=== PATIENT | male | born 1995 | race Caucasian/White ===

== ENCOUNTER 2019-03-12 17:26 | Emergency (ER) | payer OTHER ==
--- NOTE | 2019-03-12 17:41 | Emergency Department Record ---
History of Present Illness - General Chief Complaint: Chest Pain Stated Complaint: CHEST CONGESTION/PRESSURE Time Seen by Provider: 03/12/19 17:38 Source: Patient Mode of Arrival: Ambulatory Limitations: No limitations - History of Present Illness Initial Comments: The patient is here due to vague L upper chest pressure for about 10 days. The pain is a mild ache and nonradiating. It is not associated with any SOB, RADHA, sweating, nausea or lightheadedness. The pain is also NOT worse with exertion or activity. He did go to the 4 days ago for the same issue and had an EKG done and was discharged on Metoprolol which he was supposed to be already taking. The discomfort has not changed so he became concerned and wanted to be checked out again for it. The patient has no cardiac risk factors except for mild HTN. MD Complaint: Other Onset/Timin -: Days(s) Pain Location: Substernal Severity: Mild Severity scale (1-10): 3 Quality: Aching - Related Data Previous Rx's Medication Instructions Recorded Cephalexin [Keflex] 500 mg PO QID #28 cap 03/12/19 Allergies Allergy/AdvReac Type Severity Reaction Status Date / Time No Known Allergies Allergy HYPERSENSIT Verified 03/12/19 17:37 [facility] Travel Screening - Travel/Exposure Within Last 30 Days Have you traveled within the last 30 days?: No - Travel/Exposure Within Last Year Have you traveled outside the [place] in the last year?: No - Additonal Travel Details Have you been exposed to anyone with a communicable illness?: No - Travel Symptoms Symptom Screening: None Review of Systems Constitutional: Denies: Chills, Fever Eyes: Denies: Eye discharge ENT: Denies: Congestion Respiratory: Denies: Cough, Dyspnea Cardiovascular: Reports: Chest pain. Denies: Arrhythmia Endocrine: Denies: Fatigue Gastrointestinal: Denies: Nausea Genitourinary: Denies: Dysuria Musculoskeletal: Denies: Arthralgia Past Medical History - SOCIAL HISTORY Smoking Status: Former smoker Alcohol Use: Occasional Drug Use: Occasional Drug Use Detail:: Marijuana - RESPIRATORY Hx Respiratory Disorders: No - CARDIOVASCULAR Hx Cardio Disorders: No - NEURO Hx Neuro Disorders: No - GI Hx GI Disorders: No - Hx Genitourinary Disorders: No - ENDOCRINE Hx Endocrine Disorders: No - MUSCULOSKELETAL Hx Musculoskeletal Disorders: No - PSYCH Hx Psych Problems: No - HEMATOLOGY/ONCOLOGY Hx Hematology/Oncology Disorders: No Family Medical History Any Significant Family History?: Yes Physical Exam - General General Appearance: Alert, Oriented x3, Cooperative, No acute distress - Head Head exam: Atraumatic, Normocephalic, Normal inspection - Eye Eye exam: Normal appearance, PERRL - ENT Throat exam: Normal inspection. negative: Tonsillar erythema, Tonsillar exudate - Neck Neck exam: Normal inspection, Full ROM. negative: Tenderness - Respiratory Respiratory exam: Normal lung sounds bilaterally, Chest wall tenderness (THe L upper CP is 100% reproducible to palpation.). negative: Respiratory distress - Cardiovascular Cardiovascular Exam: Regular rate, Normal rhythm, Normal heart sounds - GI/Abdominal GI/Abdominal exam: Soft, Normal bowel sounds. negative: Tenderness - Extremities Extremities exam: Full ROM (The R hand and fingers have normal ROM.), Normal capillary refill. negative: Normal inspection (There are abrasions to the distal R 4th and 5th fingers at the nails from trauma today at work.), Tenderness Image of Full Body: 1 - Area of pain and 100% reproducible tenderness. - Neurological Neurological exam: Alert. negative: Motor sensory deficit Course Vital Signs 03/12/19 17:28 Temperature 98.4 F Pulse Rate 84 Respiratory 18 Rate Blood Pressure 154/94 Pulse Ox 97 - Reevaluation(s) Reevaluation #1: The patient is doing very well at this time. He denies any worsening pain or any discomfort at this time. I did discuss the fact that his workup is all very normal and clearly does not indicate any serious cardiac issues. The patient is young and healthy with no significant cardiac risk factors. His HEART SCORE calculation is 0 or 1 depending how your calculate it so I clearly feel the patient is stable for discharge. He also has had R 4th and 5th finger trauma today at work but is refusing an xray. The distal finger tips have significant abrasions present so we will clean then up and get the patient on Keflex. The patient's Td is UTD. 03/12/19 18:32 Medical Decision Making - Data Complexity MDM Data: Labs Ordered and/or Reviewed, X-Ray Ordered and/or Reviewed, EKG Ordered and/or Reviewed - Lab Data Result diagrams: 03/12/19 17:50 03/12/19 17:50 - EKG Data -: EKG Interpreted by Me EKG: No Acute Changes, Normal EKG - Radiology Data Radiology results: Report reviewed (CXR: Neg.) Disposition Disposition: Discharge Clinical Impression: Chest pain, atypical Disposition: Home, Self-Care Condition: (2) Stable Instructions: Chest Pain (ED) Additional Instructions: Please take Tylenol or Advil for pain and take the Keflex for your fingers. Please see a family doctor for follow up and possible further testing. Return to the ER for any worsening issues. Prescriptions: Cephalexin [Keflex] 500 mg PO QID #28 cap Forms: Patient Portal Access Time of Disposition: 18:36 Quality - Quality Measures Quality Measures: N/A - Blood Pressure Screening View Details: Yes Does Patient Have Any of the Following: Active Dx of HTN Blood Pressure Classification: Hypertensive Reading Systolic Measurement: 154 Diastolic Measurement: 94 Screening for High Blood Pressure: Patient Exclusion, Hx of HTN [G9744]
[2019-03-12] MEDS ORDERED: IBUPROFEN 600 MG TABLET PO ONE (17:47)
[2019-03-12 17:57] LABS: ABSOLUTE NEUTROPHIL COUNT 8.33; BASO % 0.1 % (0-6); EOS % 0.7 % (0-6); GRAN % 74.7 % (47-80); HEMATOCRIT 44.1 % (42.0-52.0); HEMOGLOBIN 15.3 gm/dl (14.0-18.0); MEAN CORPUSCULAR HEMOGLOBIN 29.8 pg (27-33); MEAN CORPUSCULAR HGB CONC 34.7 g/dl (32-36); MEAN PLATELET VOLUME 8.5 fl (7.4-10.4); MONO % 6.5 % (0-9); PLATELET COUNT 294 K/uL (130-400); RED BLOOD COUNT 5.13 M/uL (4.40-5.70); RED CELL DISTRIBUTION WIDTH 12.8 % (11.5-14.5); WHITE BLOOD COUNT W/O DIFF 11.1 K/uL (4.2-12.2)
[2019-03-12 18:05] LABS: BLOOD UREA NITROGEN 9 mg/dL (6-20); CREATININE 0.6 mg/dL (0.7-1.2); EST GLOMERULAR FILTRATION RATE > 60 mL/min
[2019-03-12 18:06] LABS: TOTAL PROTEIN 7.6 g/dL (6.6-8.7)
[2019-03-12 18:08] LABS: GLUCOSE,RANDOM 95 mg/dL (74-109)
[2019-03-12 18:11] LABS: ALB/GLOB RATIO 1.8 (1.1-1.8); ALBUMIN 4.9 g/dL (4.0-5.0); ALKALINE PHOSPHATASE 90 U/L (40-129); ALT/SGPT 17 U/L (<41); AST/SGOT 17 U/L (10.0-50.0)
--- NOTE | 2019-03-12 18:25 | RADIOLOGY REPORT ---
EXAMINATION: Two View Chest Radiographs EXAM DATE: 03/12/2019 6:21 PM TECHNIQUE: Frontal and lateral views INDICATION: CP COMPARISON: None ENCOUNTER: Not applicable FINDINGS: The heart, mediastinum, and pulmonary vasculature are normal. No lung consolidation or pleural effu sions are present. IMPRESSION: No acute pulmonary disease process Dictated by: Ethel Jordan DO on 03/12/2019 6:23 PM. .
== END 2019-03-12 18:45 | disposition home or self-care (01) ==
LOC: ER 17:26
DX: R07.89 Other chest pain (principal); S60.414A Abrasion of right ring finger, initial encounter; S60.416A Abrasion of right little finger, initial encounter; W11.XXXA Fall on and from ladder, initial encounter; I10 Essential (primary) hypertension; Z87.891 Personal history of nicotine dependence
CPT/HCPCS: 71046; 80053; 84484; 85025; 93005; 93010; 99284

== ENCOUNTER 2019-03-17 13:05 | Emergency (ER) | payer OTHER ==
[2019-03-17] MEDS ORDERED: ACETAMINOPHEN 500 MG TABLET PO ONE (14:04)
--- NOTE | 2019-03-17 14:09 | Emergency Department Record ---
History of Present Illness - General Chief complaint: Head Injury Stated complaint: VISION IS OFF, HERE FOR HEAD TRAUMA TUESDAY Time Seen by Provider: 03/17/19 13:31 Source: Patient Mode of Arrival: Ambulatory Limitations: No limitations - History of Present Illness Initial comments: pt fell 10 ft off a ladder 5days ago. he has amnesia re the event. since then he has had a flynn and problems w his vision. he also has pain in his back MD Complaint: Head injury, Fall Onset/Timin -: Days(s) Location: Other Place: Home Radiation: Neck Severity: Moderate Severity scale (1-10): 2 Quality: Aching Consistency: Constant Associated Symptoms: Vision changes - Related Data Previous Rx's Medication Instructions Recorded Cephalexin [Keflex] 500 mg PO QID #28 cap 03/12/19 Allergies/Adverse reactions: Allergies Allergy/AdvReac Type Severity Reaction Status Date / Time No Known Allergies Allergy HYPERSENSIT Verified 03/17/19 13:16 IV[facility] Travel Screening - Travel/Exposure Within Last 30 Days Have you traveled within the last 30 days?: No - Travel/Exposure Within Last Year Have you traveled outside the [place] in the last year?: No - Additonal Travel Details Have you been exposed to anyone with a communicable illness?: No - Travel Symptoms Symptom Screening: None Review of Systems Reviewed: No additional complaints except as noted below Constitutional: Reports: As per HPI. Denies: Chills, Fever, Malaise, Night sweats, Weakness, Weight change Eyes: Reports: As per HPI, Vision change. Denies: Eye discharge, Eye pain, Photophobia ENT: Reports: As per HPI. Denies: Congestion, Dental pain, Ear pain, Epistaxis, Hearing loss, Throat pain Respiratory: Reports: As per HPI. Denies: Cough, Dyspnea, Hemoptysis, Stridor, Wheezes Cardiovascular: Reports: As per HPI. Denies: Arrhythmia, Chest pain, Dyspnea on exertion, Edema, Murmurs, Orthopnea, Palpitations, Paroxysmal nocturnal dyspnea, Rheumatic Fever, Syncope Endocrine: Reports: As per HPI. Denies: Fatigue, Heat or cold intolerance, Polydipsia, Polyuria Gastrointestinal: Reports: As per HPI. Denies: Abdominal pain, Constipation, Diarrhea, Hematemesis, Hematochezia, Melena, Nausea, Vomiting Genitourinary: Reports: As per HPI. Denies: Dysuria, Frequency, Hematuria, Incontinence, Retention, Testicular pain, Testicular mass, Urgency Musculoskeletal: Reports: As per HPI. Denies: Arthralgia, Back pain, Gout, Joint swelling, Myalgia, Neck pain Skin: Reports: As per HPI. Denies: Bruising, Change in color, Change in hair/nails, Lesions, Pruritus, Rash Neurological: Reports: As per HPI. Denies: Abnormal gait, Confusion, Headache, Numbness, Paresthesias, Seizure, Tingling, Tremors, Vertigo, Weakness Psychiatric: Reports: As per HPI. Denies: Anxiety, Auditory hallucinations, Depression, Homicidal thoughts, Suicidal thoughts, Visual hallucinations Hematological/Lymphatic: Reports: As per HPI. Denies: Anemia, Blood Clots, Easy bleeding, Easy bruising, Swollen glands Past Medical History - SOCIAL HISTORY Smoking Status: Former smoker Alcohol Use: Occasional Drug Use: None - RESPIRATORY Hx Respiratory Disorders: No - CARDIOVASCULAR Hx Cardio Disorders: No - NEURO Hx Neuro Disorders: No - GI Hx GI Disorders: No - Hx Genitourinary Disorders: No - ENDOCRINE Hx Endocrine Disorders: No - MUSCULOSKELETAL Hx Musculoskeletal Disorders: No - PSYCH Hx Psych Problems: No - HEMATOLOGY/ONCOLOGY Hx Hematology/Oncology Disorders: No Family Medical History Any Significant Family History?: Yes Physical Exam - General General Appearance: Alert, Oriented x3, Cooperative, Mild distress - Head Head exam: Normal inspection Head exam detail: General tenderness - Eye Eye exam: Normal appearance, PERRL, EOMI Pupils: Normal accommodation With correction: No - ENT ENT exam: Normal exam, Mucous membranes moist, Normal external ear exam, Normal orophraynx Ear exam: Normal external inspection. negative: External canal tenderness Nasal Exam: Normal inspection. negative: Discharge, Sinus tenderness Mouth exam: Normal external inspection, Tongue normal Teeth exam: Normal inspection. negative: Dental caries Throat exam: Normal inspection. negative: Tonsillar erythema, Tonsillar exudate - Neck Neck exam: Normal inspection, Full ROM. negative: Tenderness - Respiratory Respiratory exam: Normal lung sounds bilaterally. negative: Respiratory distress - Cardiovascular Cardiovascular Exam: Regular rate, Normal rhythm, Normal heart sounds - GI/Abdominal GI/Abdominal exam: Soft, Normal bowel sounds. negative: Tenderness - Rectal Rectal exam: Deferred - exam: Deferred - Extremities Extremities exam: Normal inspection, Full ROM, Normal capillary refill. negative: Tenderness - Back Back exam: Reports: Full ROM, Tenderness. Denies: Muscle spasm, Rash noted - Neurological Neurological exam: Alert, Normal gait, Oriented X3, Reflexes normal - Psychiatric Psychiatric exam: Normal affect, Normal mood - Skin Skin exam: Dry, Intact, Normal color, Warm Course Vital Signs 03/17/19 13:17 Temperature 97.7 F Pulse Rate [ 94 H Pulse Ox Probe] Respiratory 16 Rate Blood Pressure 165/109 [Left Arm] Pulse Ox 100 - Reevaluation(s) Reevaluation #1: 03/17/19 15:37 ct and xrays neg Disposition Disposition: Discharge Clinical Impression: Multiple contusions Concussion Qualifiers: Encounter type: initial encounter Loss of consciousness presence/duration: without LOC Qualified Code(s): S06.0X0A - Concussion without loss of consciousness, initial encounter Disposition: Home, Self-Care Condition: (1) Good Instructions: Concussion (ED), Contusion in Adults (ED) Additional Instructions: follow up with family doctor. return sooner if worse. ice to sore area. motrin for pain. Forms: Patient Portal Access Quality - Quality Measures Quality Measures: N/A - Blood Pressure Screening Does Patient Have Any of the Following: No Blood Pressure Classification: Pre-Hypertensive BP Reading Systolic Measurement: 138 Diastolic Measurement: 85 Screening for High Blood Pressure: < Pre-Hypertensive BP, F/U Documented > [G8950] Pre-Hypertensive Follow-up Interventions: Follow-up with rescreen every year.
--- NOTE | 2019-03-17 14:49 | CT SCAN REPORT ---
EXAMINATION: CT Head without IV Contrast EXAM DATE: 03/17/2019 2:44 PM TECHNIQUE: Standard protocol CT images of the head were obtained without intravenous contrast. Caceres l and sagittal reconstructed images were created. INDICATION: Fall COMPARISON: No relevant comparison studies HAND DOMINANCE: Unknown. ENCOUNTER: Not applicable FINDINGS: No intra-axial or extra-axial hemorrhage. No extra-axial fluid collections. No mass effect or shift o f midline structures. No ventriculomegaly. No secondary CT findings of acutely increased intracranial or intraventricular pressure. Brain volume and ventricular size are appropriate for patient's stated age. No ventricular outflow ob struction. Suazo-white matter differentiation is preserved. No discrete white matter abnormalities. No sulcal eff acement. No suspicious areas of altered attenuation. Midline structures and craniocervical junction are unremarkable. No depressed or widely calvarial fractures. No aggressive calvarial lesions. Complete opacification of left maxillary sinus and sinus drainage pathway. Remainder of paranasal sin uses are well-aerated. Temporal bone structures are well-aerated. IMPRESSION: No acute intracranial abnormality to the limits of noncontrast CT technique. Complete opacification of left maxillary sinus; correlate clinically for signs and symptoms of sinusi tis. Dictated by: Emmie Saha MD on 03/17/2019 2:45 PM. .
--- NOTE | 2019-03-17 15:06 | RADIOLOGY REPORT ---
EXAMINATION: Right Ribs with Frontal View Chest, Minimum Three Views EXAM DATE: 03/17/2019 2:54 PM TECHNIQUE: AP and oblique views of the right ribs with frontal view of the chest INDICATION: fall COMPARISON: Chest x-ray: 03/12/2019 ENCOUNTER: Initial FINDINGS: Chest: The heart, mediastinum and pulmonary vasculature are normal. No lung consolidation or pleu ral effusions are present. Right ribs: There is no acute rib fracture. There is no lytic or blastic bone lesion. IMPRESSION: Normal chest. No rib fractures. Dictated by: Oskar Johnson MD on 03/17/2019 3:03 PM. .
== END 2019-03-17 15:53 | disposition home or self-care (01) ==
LOC: ER 13:05
DX: S06.0X0A Concussion without loss of consciousness, initial encounter (principal); S20.211A Contusion of right front wall of thorax, initial encounter; R51 Headache; H53.8 Other visual disturbances; W11.XXXA Fall on and from ladder, initial encounter; Y92.009 Unspecified place in unspecified non-institutional (private) residence as the place of occurrence of the external cause; Z87.891 Personal history of nicotine dependence
CPT/HCPCS: 70450; 99283